=== PATIENT | female | born 1980 | race Caucasian/White ===

== ENCOUNTER 2018-04-21 05:18 | Inpatient (IN) | payer OTHER ==
[2018-04-21] MEDS ORDERED: Albuterol/Ipratropium 3.0-0.5 MG/3 ML Neb Soln NEB ONE (06:10)
[2018-04-21] MEDS ORDERED: Celecoxib 200 MG Cap PO ONE (06:11)
[2018-04-21] MEDS ORDERED: Gabapentin 300 MG Cap PO ONE (06:11)
[2018-04-21] MEDS ORDERED: Scopolamine 1.5 MG Transdermal Patch TOP ONE (06:11)
[2018-04-21] MEDS ORDERED: Acetaminophen 500 MG Tab PO ONE (06:11)
[2018-04-21] MEDS ORDERED: Dextrose 5%-Lactated Ringers 1,000 ML IV SCH (06:15)
[2018-04-21] MEDS ORDERED: cefOXitin 2 GM in Sodium Chloride 0.9% 100 ML IV ONE (07:00)
[2018-04-21] MEDS ORDERED: Propofol 200 MG/20 ML SDV ONE (07:13)
[2018-04-21] MEDS ORDERED: Glycopyrrolate 0.2 MG/ML 5 ML MDV ONE (07:13)
[2018-04-21] MEDS ORDERED: Neostigmine Methylsulfate 1 MG/ML 5 ML Syringe ONE (07:13)
[2018-04-21] MEDS ORDERED: Dexamethasone 4 MG/ML SDV ONE (07:13)
[2018-04-21] MEDS ORDERED: Succinylcholine 200 MG/10 ML MDV ONE (07:13)
[2018-04-21] MEDS ORDERED: Rocuronium 50 MG/5 ML Vial ONE (07:13)
[2018-04-21] MEDS ORDERED: Ondansetron 4 MG/2 ML SDV ONE (07:13)
[2018-04-21] MEDS ORDERED: Ketamine 50 MG in Sodium Chloride 0.9% 49.5 ML IV SCH (07:30)
[2018-04-21] MEDS ORDERED: Ketamine 500 MG/5 ML MDV IV SCH (07:30)
[2018-04-21] MEDS ORDERED: Ropivacaine 60 ML, Dexamethasone 8 MG, EPINEPHrine 0.4 MG, Sodium Chloride 0.9% 17.6 ML NERVRT SCH ×4 (07:30)
[2018-04-21] MEDS ORDERED: cefOXitin 2 GM in Sodium Chloride 0.9% 50 ML IV ONE (07:45)
[2018-04-21] MEDS ORDERED: Lidocaine 2% 100 MG/5 ML Syringe IVPUSH SCH (08:00)
[2018-04-21] MEDS: cefOXitin 2 GM Vial ONE ×2 (08:41→09:25)
[2018-04-21] MEDS ORDERED: Insulin Regular, Human 100 Units/ML 3 ML Vial IVPUSH ONE (09:44)
[2018-04-21] MEDS ORDERED: fentaNYL 100 MCG/2 ML SDV IVPUSH ONE ×2 (10:00→10:06)
[2018-04-21] MEDS ORDERED: hydrOXYzine HCl 100 MG/2 ML SDV IM ONE (10:00)
[2018-04-21] MEDS ORDERED: Insulin Lispro 100 Unit/ML 3 ML KwikPen SUBCUT ONE (10:15)
[2018-04-21] MEDS: Lidocaine 0.4%/D5W 2 GM/500 ML BAG IV SCH (10:46)
[2018-04-21] MEDS ORDERED: Insulin Lispro 100 Unit/ML 3 ML KwikPen SUBCUT PRN (11:35)
[2018-04-21] MEDS ORDERED: 50% Dextrose in Water 50 ML Syringe IVPUSH PRN (11:35)
[2018-04-21] MEDS ORDERED: HYDROmorphone 0.5 MG/0.5 ML Syringe IVPUSH PRN (11:35)
[2018-04-21] MEDS ORDERED: Metoclopramide 10 MG/2 ML SDV IVPUSH PRN (11:35)
[2018-04-21] MEDS ORDERED: diphenhydrAMINE 50 MG/ML SDV IVPUSH PRN (11:35)
[2018-04-21] MEDS ORDERED: Glucagon,Human Recombinant 1 MG Vial IM PRN (11:35)
[2018-04-21] MEDS ORDERED: hydrOXYzine HCl 100 MG/2 ML SDV IM PRN (11:35)
[2018-04-21] MEDS ORDERED: Labetalol 20 MG/4 ML Syringe IVPUSH PRN (11:35)
[2018-04-21] MEDS ORDERED: Albuterol/Ipratropium 3.0-0.5 MG/3 ML Neb Soln INH PRN (11:35)
[2018-04-21] MEDS: Pantoprazole 40 MG Vial IVPUSH SCH (11:58)
[2018-04-21] MEDS: Acetaminophen Soln 650 MG/20.3 ML UD Cup PO SCH ×2 (11:58→17:21)
[2018-04-21] MEDS: Dextrose 5%-Lactated Ringers 1,000 ML IV SCH ×2 (12:52→22:59)
[2018-04-21] MEDS ORDERED: Lactated Ringers 1,000 ML ONE (13:26)
[2018-04-21] MEDS: Gabapentin 250 MG/5 ML Solution ML 470 ML Bottle PO SCH ×2 (13:39→21:08)
[2018-04-21] MEDS: cefOXitin 2 GM in Sodium Chloride 0.9% 50 ML IV SCH ×2 (13:39→19:34)
[2018-04-21] MEDS: Ondansetron 4 MG/2 ML SDV IVPUSH PRN ×2 (14:20→19:33)
[2018-04-21] MEDS: Albuterol/Ipratropium 3.0-0.5 MG/3 ML Neb Soln INH SCH ×2 (15:09→21:09)
[2018-04-21] MEDS ORDERED: MVI, Adult with Vitamin K 10 ML, Thiamine 200 MG, Chromium/Copper/Mang/Selen/Zn 1 ML in... IV SCH ×4 (16:00)
[2018-04-21] MEDS ORDERED: MVI, Adult with Vitamin K 10 ML, Thiamine 100 MG, Chromium/Copper/Mang/Selen/Zn 1 ML in... IV SCH ×4 (16:00)
[2018-04-21] MEDS: Heparin Sodium 5,000 Units/ML Vial SUBCUT SCH (16:39)
[2018-04-22] MEDS: Acetaminophen Soln 650 MG/20.3 ML UD Cup PO SCH ×5 (00:36→23:19)
[2018-04-22] MEDS ORDERED: Iohexol 647 MG/ML 50 ML SDV PO STA (03:05)
[2018-04-22] MEDS: cefOXitin 2 GM in Sodium Chloride 0.9% 50 ML IV SCH ×2 (03:20→08:15)
[2018-04-22] MEDS: Heparin Sodium 5,000 Units/ML Vial SUBCUT SCH ×2 (03:20→15:53)
[2018-04-22] MEDS: Ondansetron 4 MG/2 ML SDV IVPUSH PRN (03:33)
[2018-04-22] MEDS: Dextrose 5%-Lactated Ringers 1,000 ML IV SCH (03:40)
--- NOTE | 2018-04-22 04:40 | CRLCR ---
INDICATION: Ozzy-en-Y TECHNIQUE: Abdomen modified upper GI COMPARISON: None FINDINGS: Oral contrast identified within the gastric pouch and transiting into jejunum and proximal ileum with no evidence of leakage. Physical drain identified in the left upper quadrant. IMPRESSION: Oral contrast transiting through the gastric pouch into the distal jejunum and proximal ileum without evidence for leakage. Dictated by Niles Landaverde MD @ 04/22/2018 4:38:54 AM Dictated by: Niles Landaverde MD @ 04/22/2018 04:39:01 (Electronically Signed)
[2018-04-22] MEDS: Albuterol/Ipratropium 3.0-0.5 MG/3 ML Neb Soln INH SCH ×4 (07:29→21:45)
[2018-04-22] MEDS: Lidocaine 0.4%/D5W 2 GM/500 ML BAG IV SCH (08:12)
[2018-04-22] MEDS: Gabapentin 250 MG/5 ML Solution ML 470 ML Bottle PO SCH ×3 (08:13→21:46)
[2018-04-22] MEDS: Celecoxib 200 MG Cap PO SCH (08:14)
[2018-04-22] MEDS ORDERED: valACYclovir 1,000 MG Tab PO PRN (09:18)
[2018-04-22] MEDS ORDERED: ALPRAZolam 0.5 MG Tab PO PRN (09:20)
[2018-04-22] MEDS: SCOPOLAMINE PATCH CHECK TOP SCH (09:24)
[2018-04-22] MEDS: HYDROmorphone 1 MG/ML Syringe IV PRN ×2 (09:27→15:46)
[2018-04-22] MEDS ORDERED: Dextrose 5%-Lactated Ringers 1,000 ML IV SCH (09:30)
[2018-04-22] MEDS: DULoxetine 30 MG Cap PO SCH (10:10)
[2018-04-22] MEDS: Escitalopram 20 MG Tab PO SCH (10:10)
[2018-04-22] MEDS: metFORMIN 500 MG Tab PO SCH ×2 (10:13→16:52)
[2018-04-22] MEDS: Pantoprazole 40 MG Vial IVPUSH SCH (12:18)
[2018-04-22] MEDS ORDERED: MVI, Adult with Vitamin K 10 ML, Thiamine 100 MG, Chromium/Copper/Mang/Selen/Zn 1 ML in... IV SCH ×4 (16:00)
[2018-04-22] MEDS ORDERED: HYDROmorphone 2 MG Tab PO PRN (20:38)
[2018-04-23] MEDS: Heparin Sodium 5,000 Units/ML Vial SUBCUT SCH ×2 (03:39→16:23)
[2018-04-23] MEDS: Acetaminophen Soln 650 MG/20.3 ML UD Cup PO SCH ×3 (05:53→17:43)
[2018-04-23] MEDS: Albuterol/Ipratropium 3.0-0.5 MG/3 ML Neb Soln INH SCH ×4 (07:12→20:07)
--- NOTE | 2018-04-23 07:48 | PN ---
DATE OF SERVICE: 04/22/2018 The patient has been afebrile with stable vital signs. Urine output has been satisfactory. Pressures are running in the mid 100s, and we will restart her metformin today. Otherwise, back down on the IV rate, go to a step 2 diet, and continue present pain management. Ricki Doss MD /[id number]
[2018-04-23] MEDS: metFORMIN 500 MG Tab PO SCH ×2 (08:04→16:23)
[2018-04-23] MEDS: Celecoxib 200 MG Cap PO SCH (08:04)
[2018-04-23] MEDS: DULoxetine 30 MG Cap PO SCH (08:04)
[2018-04-23] MEDS: SCOPOLAMINE PATCH CHECK TOP SCH (08:04)
[2018-04-23] MEDS: Escitalopram 20 MG Tab PO SCH (08:05)
[2018-04-23] MEDS: Gabapentin 250 MG/5 ML Solution ML 470 ML Bottle PO SCH ×3 (08:06→20:03)
[2018-04-23] MEDS ORDERED: Magnesium Hydroxide 400 MG/5 ML Susp 30 ML Cup PO ONE (08:30)
[2018-04-23] MEDS ORDERED: Cyanocobalamin (Vitamin B12) 1,000 MCG/ML SDV IM ONE (09:00)
[2018-04-23] MEDS ORDERED: Bisacodyl 5 MG Tab PO ONE (09:30)
--- NOTE | 2018-04-23 16:41 | PN ---
DATE OF SERVICE: 04/23/2018 SUBJECTIVE: Deepali is postoperative day #2. She had a temperature max of 100.2. She has been up ambulating, passing flatus, but has not had a bowel movement yet. Oral intake 2340. Urine output is 2100. Tolerating a step-2 with no cereal well. REVIEW OF SYSTEMS: Remainder of review of systems negative for any pertinent positives and negatives. OBJECTIVE: GENERAL: Deepali is a pleasant 37-year-old female, in no acute distress. VITAL SIGNS: TPR is 97.5, 91, 18, and blood pressure 117/78. HEENT: Negative. NECK: Supple. HEART: Regular rate and rhythm. LUNGS: Clear. ABDOMEN: Dressings dry and intact. Abdominal binder is on. LYNNE drain intact and has put out 85 mL of a light pink serosanguineous drainage. EXTREMITIES: Without peripheral edema. ASSESSMENT: Laparoscopic Ozzy-en-Y gastric bypass surgery, 04/21/2018. Surgeon, Ricki Doss MD. PLAN: 1. Milk of magnesia 30 mL now, followed by Dulcolax tabs. 2. One hour after milk of magnesia, work on good oral intake. 3. We will evaluate p.r.n. or in a.m. Alvina Fernandez PA-C /[id number]
[2018-04-24] MEDS: Acetaminophen Soln 650 MG/20.3 ML UD Cup PO SCH ×2 (01:01→05:00)
[2018-04-24] MEDS: Heparin Sodium 5,000 Units/ML Vial SUBCUT SCH (04:58)
[2018-04-24] MEDS: Albuterol/Ipratropium 3.0-0.5 MG/3 ML Neb Soln INH SCH (07:20)
[2018-04-24] MEDS: Celecoxib 200 MG Cap PO SCH (07:56)
[2018-04-24] MEDS: metFORMIN 500 MG Tab PO SCH (07:56)
[2018-04-24] MEDS: DULoxetine 30 MG Cap PO SCH (08:00)
[2018-04-24] MEDS: Escitalopram 20 MG Tab PO SCH (08:00)
[2018-04-24] MEDS: Gabapentin 250 MG/5 ML Solution ML 470 ML Bottle PO SCH (08:00)
--- NOTE | 2018-04-25 09:47 | DISCH ---
ADMISSION DIAGNOSES: 1. Morbid obesity, BMI 47.8. 2. Polycystic ovary disease. 3. Asthma. 4. Major depression disorder. DISCHARGE DIAGNOSES: Laparoscopic Ozzy-en-Y gastric bypass surgery and Ye-Cut needle liver biopsy. Date of surgery 04/21/2018. Surgeon, Ricki Doss MD. HISTORY: Deepali Villatoro is a 37-year-old female with longstanding history of morbid obesity and increasing comorbidities. After preoperative evaluation and discussion of possible risks and possible complications, she wished to proceed with surgical procedure. HOSPITAL COURSE: Deepali had her surgery on 04/21/2018. She had no operative complications. On postoperative day #1, her IV was decreased to 100 mL per hour. She was started on step 2 gastric bypass diet without cereal, and she was started on her home medications. On postoperative day 2, she was given bowel stimulation, B12 1000 mcg IM injection and received dietary instruction. On postoperative day #3, she was able to be discharged to home without any complications. PHYSICAL EXAMINATION: GENERAL: Deepali Villatoro is a 37-year-old female alert and orientated. VITAL SIGNS: Height 5 feet 2.5 inches. Weight is 265 pounds. BMI is 47.8. TPR 97.6, 93, 16, blood pressure 143/80. HEENT: Negative. NECK: Supple. HEART: Regular rate and rhythm. LUNGS: Clear. ABDOMEN: Sutures intact. LYNNE drain will be pulled prior to discharge. Abdominal binder on. EXTREMITIES: Without peripheral edema. DISPOSITION: Discharged to home. CONDITION: Stable and improving. FOLLOWUP APPOINTMENT: Alvina Fernandez PA-C, on 05/06/2018 at 10:00 a.m. Appointment at [place], [place]. HOME MEDICATIONS: Tylenol 650 mg oral q.6 hours, Celebrex 200 mg oral daily for 14 days, alprazolam 0.5 mg 3 times a day p.r.n. anxiety, albuterol ProAir inhaler 8.5 g inhalation every 4 hours p.r.n. shortness of breath, clindamycin Cleocin-T gel topical twice daily to affected area, Lotrisone cream twice daily to affected areas, Cymbalta 30 mg oral daily, Lexapro 20 mg oral daily, triamcinolone Kenalog cream topical twice daily, metformin 1000 mg oral twice daily with meals, valacyclovir, Valtrex 1000 mg oral daily p.r.n. cold sores. She is to discontinue taking her vitamins and supplements to after first postoperative appointment. DIET: Step 2 gastric bypass diet with no cereal for 2 weeks until 05/06/2018. Drink 8 to 10 glasses of water a day. ACTIVITY: Walk at least 6 times daily inside your home. Driving; do not drive for one week. Shower/bathing, may shower. DISCHARGE INSTRUCTIONS: Notify provider if any fever, increased pain, nausea, or vomiting. Keep site clean and dry. Wear abdominal binder for 2 weeks and then as tolerated. SPECIAL INSTRUCTION: Use incentive spirometer 10 times every hour while awake for one week.
--- NOTE | 2018-04-28 15:17 | OR ---
DATE OF PROCEDURE: 04/21/2018 PREOPERATIVE DIAGNOSIS: Morbid obesity. POSTOPERATIVE DIAGNOSES: 1. Morbid obesity. 2. Marked hepatomegaly. 3. Paraesophageal diaphragmatic hernia. OPERATIVE PROCEDURE: 1. Laparoscopic Ozzy-en-Y gastric bypass with long limb gastroenterostomy (78908). 2. Ye-Cut needle liver biopsy (43952). 3. Repair of paraesophageal diaphragmatic hernia (14932). ANESTHESIA: General. SIGNAL MECHANIC: Alvina uLgo and WERO Hamilton. INDICATION FOR PROCEDURE: This is a 37-year-old female presenting with longstanding morbid obesity and increasingly significant comorbidities. After preoperative evaluation and discussion, she wished to proceed with a gastric bypass. Potential risks of the procedure including bleeding, infection, leaks from various GI tract closures, problems with bowel obstruction overtime, as well as possibility of cardiopulmonary, septic, or hemorrhagic complications leading to were all discussed, and the patient wishes to proceed. DESCRIPTION OF PROCEDURE: The patient was taken to the operating room. After general endotracheal anesthesia was induced, she was placed in a lithotomy position, and the abdomen was prepped and draped. At 15 cm inferior and 5 cm left of xiphoid process, a transverse incision was made and peritoneal cavity entered under direct vision with an Optiview trocar, inflated to 15 mmHg pressure with CO2. Following this, bilateral subcostal transverse abdominis plane blocks were placed, and 5 additional trocars were placed across the upper and mid abdomen. Initial examination showed marked hepatomegaly with liver volume being roughly 2 to 3 times normal and liver grossly fatty infiltrated. Ye-Cut needle biopsies were obtained from left lobe of the liver. Minimal bleeding from the biopsy sites was controlled with electrocautery. The omentum was then divided in the midline up to the level of the transverse colon. This allowed identification of small bowel at the ligament of Treitz. Small bowel was then traced out to 150 cm distal to that point, where it was divided transversely with a JERRY stapler. Small bowel was then traced out an additional 200 cm, where the [id number]-[id number] enteroenterostomy was accomplished with internal firing of the Endo-JERRY 60 mm stapler. Common opening was then closed transversely with the same stapler and angles anastomosed and mesenteric defect was approximated with some 0 Ethibond stitch, along with fibrin sealant. The divided end of the Ozzy limb was then from the mesentery for a few centimeters, which allowed an antecolic position of the Ozzy limb up to the level of the gastroesophageal junction without tension. The liver was then retracted anteriorly. The patient was noted to have a moderate-sized paraesophageal diaphragmatic hernia. This included a prolapse of some perigastric fat and fundus of the stomach in the plane anterior to the course of the esophagus. This area was reduced and the peritoneum overlying it incised and reflected downward. Anterior repair of the diaphragmatic hernia was accomplished with series of 0 Ethibond sutures reinforced with PTFE pledgets. The gastrointestinal balloon catheter was then inflated 15 mL and pulled up snugly against the EG junction. Gastric wall over the apex balloon was then marked with electrocautery. Balloon catheter deflated and pulled up from the esophagus. The lesser omental tissue adjacent to the gastric cardia was then incised, allowing dissection behind the stomach at that level. Pouch formation was initiated with a transverse firing of the JERRY stapler at the level of the cauterized alana in the gastric cardia and then the pouch was completed with additional firings of JERRY carlo up through the angle of His. Upon completion of the pouch, both staple lines were noted to be intact. The anvil of a 25 mm EEA stapler was attached to Welch sump type tube. The latter was brought down through the mouth, taken out through a small opening in the gastric pouch, allowing the anvil likewise to be pulled down to within the gastric pouch. The divided end of the Ozzy limb was then opened and the main body of the EEA stapler was passed up several centimeters into the Ozzy limb and small bowel, brought up the anvil and united with it, thus creating the gastrojejunostomy. Upon removal of stapler, double donuts of mucosa were noted within it. The small bowel was closed off with a vascular staple line. Gastrojejunostomy was reinforced with some 3-0 Vicryl seromuscular stitch, along with fibrin sealant. Leak test was accomplished with injection of 120 mL of air in the gastric pouch while submerged with a cefoxitin-containing saline solution. No leaks were identified. Erik-Pradhan drains were then placed adjacent to the gastrojejunostomy and taken out through subcostal trocar sites. With no further problems noted, trocars were removed and the peritoneal cavity deflated. Incisions were closed with some 4-0 Vicryl skin stitch, which was also used to reapproximate this drain. The patient was taken to the recovery room in satisfactory condition. There were no evident of complications. Physician fish hatchery assistant, Alvina Fernandez, played an essential role in assisting in this case, helping to position the patient, retract structures as needed, as well as suturing and cutting sutures when indicated. Her presence improved the patient's safety and decreased the operative time. Ricki Doss MD /[id number]
== END 2018-04-24 10:30 | disposition home or self-care (01) | DRG 620 ==
LOC: JP.SDS 05:18 → JP.SDSSCHI 05:18 → JP.MS 09:25 → EDSTATUS 12:15
PROVIDERS: ADMIT Surgery; ATTEND Surgery
PROC: 0D164ZA Bypass Stomach to Jejunum, Percutaneous Endoscopic Approach (ICD-10-PCS; principal; 2018-04-21)
PROC: 0FB24ZX Excision of Left Lobe Liver, Percutaneous Endoscopic Approach, Diagnostic (ICD-10-PCS; 2018-04-21)
PROC: 0BQT4ZZ Repair Diaphragm, Percutaneous Endoscopic Approach (ICD-10-PCS; 2018-04-21)
DX: E66.01 Morbid (severe) obesity due to excess calories (principal); F33.8 Other recurrent depressive disorders; K44.9 Diaphragmatic hernia without obstruction or gangrene; R16.0 Hepatomegaly, not elsewhere classified; K76.0 Fatty (change of) liver, not elsewhere classified; Z68.42 Body mass index [BMI] 45.0-49.9, adult; A63.0 Anogenital (venereal) warts; J45.30 Mild persistent asthma, uncomplicated; E28.2 Polycystic ovarian syndrome; L70.9 Acne, unspecified; Z88.1 Allergy status to other antibiotic agents; Z88.8 Allergy status to other drugs, medicaments and biological substances
CPT/HCPCS: 36415; 74240; 81025; 82962; 86850; 86900; 86901; 88307; 88313; 94640; A9270-GY; C9113; J0171; J0330; J0694; J1100; J1170; J1644; J1815; J2001; J2405; J2704; J2710; J2795; J3010; J3410; J3411; J3420; J3490; J7030; J7042; J7050; J7120; J7620-GY; Q9967

== ENCOUNTER 2022-02-22 08:08 | Inpatient (IN) | payer BC, OTHER ==
[2022-02-22] MEDS ORDERED: Neostigmine Methylsulfate 1 MG/ML 5 ML Syringe ONE (08:24)
[2022-02-22] MEDS ORDERED: Succinylcholine 200 MG/10 ML MDV ONE (08:24)
[2022-02-22] MEDS ORDERED: Rocuronium 50 MG/5 ML Vial ONE (08:24)
[2022-02-22] MEDS ORDERED: Propofol 200 MG/20 ML SDV ONE (08:24)
[2022-02-22] MEDS ORDERED: Glycopyrrolate 0.2 MG/ML 5 ML MDV ONE (08:24)
[2022-02-22] MEDS ORDERED: Ondansetron 4 MG/2 ML SDV ONE (08:24)
[2022-02-22] MEDS ORDERED: Dexamethasone 4 MG/ML SDV ONE (08:24)
[2022-02-22] MEDS ORDERED: Scopolamine 1.5 MG Transdermal Patch TOP SCH (09:00)
[2022-02-22] MEDS ORDERED: Dextrose 5%-Lactated Ringers 1,000 ML IV SCH (09:00)
[2022-02-22] MEDS ORDERED: Albuterol/Ipratropium 3.0-0.5 MG/3 ML Neb Soln NEB ONE (09:15)
[2022-02-22] MEDS ORDERED: Bupivacaine 0.5% 30 ML SDV ONE (09:20)
[2022-02-22] MEDS ORDERED: Lidocaine 1% with EPINEPHrine 1:100,000 50 ML MDV ONE (09:20)
[2022-02-22] MEDS ORDERED: Meropenem 500 MG SDV ONE (09:20)
[2022-02-22] MEDS ORDERED: Naloxone 0.4 MG/ML SDV IVPUSH PRN (09:26)
[2022-02-22] MEDS ORDERED: diphenhydrAMINE 25 MG Cap PO PRN (09:26)
[2022-02-22] MEDS ORDERED: Ondansetron 4 MG/2 ML SDV IVPUSH PRN ×2 (09:26→14:15)
[2022-02-22] MEDS ORDERED: diphenhydrAMINE 50 MG/ML SDV IVPUSH PRN ×2 (09:26→14:15)
[2022-02-22] MEDS ORDERED: Naloxone 0.4 MG/ML SDV IV PRN (10:00)
[2022-02-22] MEDS ORDERED: cefOXitin 2 GM in Sodium Chloride 0.9% 50 ML IV ONE (10:00)
[2022-02-22] MEDS ORDERED: Ketamine 500 MG/5 ML MDV IV SCH (10:15)
[2022-02-22] MEDS ORDERED: Ropivacaine 36 ML, dexAMETHasone 8 MG, EPINEPHrine 0.4 MG, Sodium Chloride 0.9% 41.6 ML NERVRT SCH ×4 (10:15)
[2022-02-22] MEDS ORDERED: Ketamine 15 MG in Sodium Chloride 0.9% 19.85 ML IV SCH (10:15)
[2022-02-22] MEDS: HYDROmorphone/Normal Saline 6 MG/30 ML PCA Vial IV PRN (10:57)
[2022-02-22] MEDS ORDERED: Meropenem 500 MG SDV IRR ONE (11:28)
[2022-02-22] MEDS ORDERED: Linezolid 600 MG/300 ML Premix Bag IRR ONE (11:29)
[2022-02-22] MEDS ORDERED: Lactated Ringers 1,000 ML ONE (11:40)
[2022-02-22] MEDS ORDERED: hydrOXYzine HCL 100 MG/2 ML SDV IM ONE (12:41)
[2022-02-22] MEDS ORDERED: fentaNYL 50 MCG/ML SDV IVPUSH ONE (12:41)
[2022-02-22] MEDS ORDERED: Acetaminophen 500 MG Tab PO SCH (14:00)
[2022-02-22] MEDS ORDERED: Acetaminophen 500 MG Tab PO PRN (14:15)
[2022-02-22] MEDS ORDERED: Albuterol/Ipratropium 3.0-0.5 MG/3 ML Neb Soln INH PRN (14:15)
[2022-02-22] MEDS ORDERED: Metoclopramide 10 MG/2 ML SDV IVPUSH PRN (14:15)
[2022-02-22] MEDS ORDERED: Labetalol 20 MG/4 ML Syringe IVPUSH PRN (14:15)
[2022-02-22] MEDS: Albuterol/Ipratropium 3.0-0.5 MG/3 ML Neb Soln INH SCH ×2 (14:39→20:05)
[2022-02-22] MEDS: Dextrose 5%-Lactated Ringers 1,000 ML IV SCH (14:57)
[2022-02-22] MEDS: Sodium Ferric Gluconate Cmplex 250 MG in Sodium Chloride 0.9% 100 ML IV SCH (14:59)
[2022-02-22] MEDS: Cyclobenzaprine 10 MG Tab PO PRN (15:55)
[2022-02-22] MEDS ORDERED: MVI, Adult with Vitamin K 10 ML, Thiamine 200 MG, Zinc/Copper/Manganese/Selenium 1 ML i... IV SCH ×8 (16:00→22:00)
[2022-02-22] MEDS ORDERED: Pantoprazole 40 MG Vial IVPUSH SCH (16:00)
[2022-02-22] MEDS: metFORMIN 500 MG Tab PO SCH (17:49)
[2022-02-22] MEDS: hydrOXYzine HCL 100 MG/2 ML SDV IM PRN (19:02)
[2022-02-22] MEDS: cefOXitin 2 GM in Sodium Chloride 0.9% 50 ML IV SCH ×2 (19:05→23:14)
[2022-02-22] MEDS: busPIRone 10 MG Tab PO SCH (20:01)
[2022-02-22] MEDS: Heparin Sodium 5,000 Units/ML Vial SUBCUT SCH (20:01)
[2022-02-22] MEDS: Acetaminophen 500 MG Tab PO SCH (21:23)
[2022-02-23] MEDS: hydrOXYzine HCL 100 MG/2 ML SDV IM PRN ×2 (02:41→08:49)
[2022-02-23] MEDS ORDERED: Iopamidol 612 MG/ML 50 ML SDV PO STA (02:57)
[2022-02-23] MEDS: Dextrose 5%-Lactated Ringers 1,000 ML IV SCH ×2 (04:29→12:09)
[2022-02-23 05:03] LABS: ESTIMATED GFR 82 mL/min (>60)
[2022-02-23] MEDS: Acetaminophen 500 MG Tab PO SCH ×3 (05:27→22:01)
[2022-02-23] MEDS: cefOXitin 2 GM in Sodium Chloride 0.9% 50 ML IV SCH ×4 (05:27→22:02)
[2022-02-23] MEDS: Albuterol/Ipratropium 3.0-0.5 MG/3 ML Neb Soln INH SCH ×4 (07:18→20:50)
[2022-02-23] MEDS ORDERED: Ondansetron 4 MG Tab.DIS PO PRN (08:15)
[2022-02-23] MEDS: HYDROmorphone/Normal Saline 6 MG/30 ML PCA Vial IV PRN (08:33)
[2022-02-23] MEDS: busPIRone 10 MG Tab PO SCH ×3 (08:35→20:51)
[2022-02-23] MEDS: DULoxetine 30 MG Cap PO SCH (08:35)
[2022-02-23] MEDS: Celecoxib 200 MG Cap PO SCH ×2 (08:35→20:51)
[2022-02-23] MEDS: Heparin Sodium 5,000 Units/ML Vial SUBCUT SCH ×2 (08:35→19:28)
[2022-02-23] MEDS: metFORMIN 500 MG Tab PO SCH ×2 (08:35→16:42)
[2022-02-23] MEDS: Docusate Sodium 100 MG Cap PO SCH ×2 (08:39→20:51)
[2022-02-23] MEDS: Bisacodyl 5 MG Tab PO SCH ×2 (08:39→20:51)
[2022-02-23] MEDS: SCOPOLAMINE PATCH CHECK TOP SCH (08:39)
[2022-02-23] MEDS: Cyclobenzaprine 10 MG Tab PO PRN (11:56)
[2022-02-23] MEDS: valACYclovir 1,000 MG Tab PO SCH ×2 (14:04→22:02)
[2022-02-23] MEDS: Sodium Ferric Gluconate Cmplex 250 MG in Sodium Chloride 0.9% 100 ML IV SCH (15:51)
[2022-02-23] MEDS: Pantoprazole 40 MG Tab.CR PO SCH (16:42)
[2022-02-23] MEDS ORDERED: MVI, Adult with Vitamin K 10 ML, Thiamine 200 MG, Zinc/Copper/Manganese/Selenium 1 ML i... IV SCH ×4 (20:00)
[2022-02-24] MEDS: Acetaminophen 500 MG Tab PO SCH ×3 (05:22→21:02)
[2022-02-24] MEDS: Albuterol/Ipratropium 3.0-0.5 MG/3 ML Neb Soln INH SCH ×4 (07:06→21:00)
[2022-02-24] MEDS: Dextrose 5%-Lactated Ringers 1,000 ML IV SCH ×2 (07:35→17:28)
[2022-02-24] MEDS: Heparin Sodium 5,000 Units/ML Vial SUBCUT SCH ×2 (08:28→19:32)
[2022-02-24] MEDS: Docusate Sodium 100 MG Cap PO SCH ×3 (08:29→21:01)
[2022-02-24] MEDS: Bisacodyl 5 MG Tab PO SCH ×3 (08:29→21:02)
[2022-02-24] MEDS: metFORMIN 500 MG Tab PO SCH ×2 (08:30→17:07)
[2022-02-24] MEDS: SCOPOLAMINE PATCH CHECK TOP SCH (08:30)
[2022-02-24] MEDS: Celecoxib 200 MG Cap PO SCH ×2 (08:30→21:01)
[2022-02-24] MEDS: busPIRone 10 MG Tab PO SCH ×3 (08:30→21:01)
[2022-02-24] MEDS: DULoxetine 30 MG Cap PO SCH (08:30)
[2022-02-24] MEDS ORDERED: Cyanocobalamin (Vitamin B12) 1,000 MCG/ML SDV IM ONE (09:00)
[2022-02-24] MEDS: HYDROmorphone 2 MG Tab PO PRN ×3 (11:42→19:40)
[2022-02-24] MEDS: Pantoprazole 40 MG Tab.CR PO SCH (17:02)
[2022-02-25] MEDS: HYDROmorphone 2 MG Tab PO PRN ×2 (01:16→05:44)
[2022-02-25] MEDS: Dextrose 5%-Lactated Ringers 1,000 ML IV SCH (03:25)
[2022-02-25] MEDS: Acetaminophen 500 MG Tab PO SCH (05:41)
[2022-02-25] MEDS: Albuterol/Ipratropium 3.0-0.5 MG/3 ML Neb Soln INH SCH (06:56)
[2022-02-25] MEDS ORDERED: Magnesium Hydroxide 400 MG/5 ML Susp 30 ML Cup PO ONE (07:47)
[2022-02-25] MEDS: Cyclobenzaprine 10 MG Tab PO PRN (08:08)
[2022-02-25] MEDS: busPIRone 10 MG Tab PO SCH (08:08)
[2022-02-25] MEDS: Celecoxib 200 MG Cap PO SCH (08:09)
[2022-02-25] MEDS: Docusate Sodium 100 MG Cap PO SCH (08:09)
[2022-02-25] MEDS: Bisacodyl 5 MG Tab PO SCH (08:09)
[2022-02-25] MEDS: metFORMIN 500 MG Tab PO SCH (08:10)
[2022-02-25] MEDS: Heparin Sodium 5,000 Units/ML Vial SUBCUT SCH (08:10)
[2022-02-25] MEDS: DULoxetine 30 MG Cap PO SCH (08:10)
== END 2022-02-25 08:30 | disposition home or self-care (01) | DRG 221 ==
LOC: JP.SDSSCHI 08:08 → JP.MS 12:30
PROVIDERS: ADMIT Surgery; ATTEND Surgery
PROC: 0DS80ZZ Reposition Small Intestine, Open Approach (ICD-10-PCS; principal; 2022-02-22)
PROC: 0DB80ZZ Excision of Small Intestine, Open Approach (ICD-10-PCS; 2022-02-22)
PROC: 0DBW0ZZ Excision of Peritoneum, Open Approach (ICD-10-PCS; 2022-02-22)
PROC: 0UB00ZZ Excision of Right Ovary, Open Approach (ICD-10-PCS; 2022-02-22)
PROC: 0DBN0ZZ Excision of Sigmoid Colon, Open Approach (ICD-10-PCS; 2022-02-22)
PROC: 0DBP0ZZ Excision of Rectum, Open Approach (ICD-10-PCS; 2022-02-22)
PROC: 0WQF0ZZ Repair Abdominal Wall, Open Approach (ICD-10-PCS; 2022-02-22)
PROC: 3E0M05Z Introduction of Adhesion Barrier into Peritoneal Cavity, Open Approach (ICD-10-PCS; 2022-02-22)
DX: K95.89 Other complications of other bariatric procedure (principal); K56.2 Volvulus; N83.201 Unspecified ovarian cyst, right side; K43.0 Incisional hernia with obstruction, without gangrene; F41.9 Anxiety disorder, unspecified; F32.A Depression, unspecified; E66.01 Morbid (severe) obesity due to excess calories; K91.2 Postsurgical malabsorption, not elsewhere classified; E53.8 Deficiency of other specified B group vitamins; E53.9 Vitamin B deficiency, unspecified; E55.9 Vitamin D deficiency, unspecified; E60 Dietary zinc deficiency; E50.9 Vitamin A deficiency, unspecified; Z79.899 Other long term (current) drug therapy; Z79.84 Long term (current) use of oral hypoglycemic drugs; Z68.28 Body mass index [BMI] 28.0-28.9, adult
CPT/HCPCS: 36415; 74240; 80053; 81025; 83735; 84100; 85025; 86304; 88302; 88305; 88307; 88341; 88342; 94640; A9270-GY; C9113; J0171; J0330; J0694; J1100; J1170; J1644; J2020; J2185; J2405; J2704; J2710; J2795; J2916; J3010; J3410; J3411; J3420; J3490; J7120; J7121; J7620; Q9967

== ENCOUNTER 2022-06-29 07:47 | Inpatient (IN) | payer BC ==
[2022-06-29] MEDS ORDERED: Neostigmine Methylsulfate 1 MG/ML 5 ML Syringe ONE (07:53)
[2022-06-29] MEDS ORDERED: Propofol 200 MG/20 ML SDV ONE (07:53)
[2022-06-29] MEDS ORDERED: Glycopyrrolate 0.2 MG/ML 5 ML MDV ONE (07:53)
[2022-06-29] MEDS ORDERED: Ondansetron 4 MG/2 ML SDV ONE (07:53)
[2022-06-29] MEDS ORDERED: Dexamethasone 4 MG/ML SDV ONE (07:53)
[2022-06-29] MEDS ORDERED: fentaNYL 250 MCG/5 ML SDV ONE (07:53)
[2022-06-29] MEDS ORDERED: Succinylcholine 200 MG/10 ML MDV ONE (07:53)
[2022-06-29] MEDS ORDERED: Scopolamine 1.5 MG Transdermal Patch TOP SCH (08:30)
[2022-06-29] MEDS ORDERED: Celecoxib 200 MG Cap PO ONE (08:30)
[2022-06-29] MEDS ORDERED: Dextrose 5%-Lactated Ringers 1,000 ML IV SCH (08:30)
[2022-06-29] MEDS ORDERED: Naloxone 0.4 MG/ML SDV IV PRN (09:00)
[2022-06-29] MEDS ORDERED: Albuterol/Ipratropium 3.0-0.5 MG/3 ML Neb Soln NEB ONE (09:00)
[2022-06-29] MEDS ORDERED: ceFAZolin 2 GM in Premix Bag 1 BAG IV ONE (09:00)
[2022-06-29] MEDS ORDERED: Lidocaine 1% with EPINEPHrine 1:100,000 50 ML MDV ONE (09:31)
[2022-06-29] MEDS ORDERED: Bupivacaine 0.5% 50 ML MDV ONE (09:31)
[2022-06-29] MEDS ORDERED: Ketamine 15 MG in Sodium Chloride 0.9% 19.85 ML IV SCH (09:45)
[2022-06-29] MEDS ORDERED: Ropivacaine 35 ML, dexAMETHasone 8 MG, EPINEPHrine 0.4 MG, Sodium Chloride 0.9% 42.6 ML NERVRT SCH ×4 (09:45)
[2022-06-29] MEDS ORDERED: Ketamine 500 MG/5 ML MDV IV SCH (09:45)
[2022-06-29] MEDS: HYDROmorphone/Normal Saline 6 MG/30 ML PCA Vial IV PRN ×2 (10:35→21:21)
[2022-06-29] MEDS ORDERED: Rocuronium 50 MG/5 ML Vial ONE (10:58)
[2022-06-29] MEDS: Meropenem 500 MG SDV ONE ×2 (11:18→12:00)
[2022-06-29] MEDS ORDERED: Linezolid 600 MG/300 ML Premix Bag IRR ONE (12:00)
[2022-06-29] MEDS ORDERED: fentaNYL 100 MCG/2 ML SDV ONE ×2 (12:08→12:30)
[2022-06-29] MEDS ORDERED: Lactated Ringers 1,000 ML ONE (12:15)
[2022-06-29] MEDS ORDERED: hydrOXYzine HCl 50 MG/ML SDV IM ONE (13:05)
[2022-06-29] MEDS ORDERED: ALPRAZolam 0.5 MG Tab PO PRN (14:35)
[2022-06-29] MEDS: Albuterol/Ipratropium 3.0-0.5 MG/3 ML Neb Soln INH SCH ×2 (14:36→20:38)
[2022-06-29] MEDS ORDERED: Albuterol/Ipratropium 3.0-0.5 MG/3 ML Neb Soln INH PRN (15:00)
[2022-06-29] MEDS ORDERED: Metoclopramide 10 MG/2 ML SDV IVPUSH PRN (15:00)
[2022-06-29] MEDS ORDERED: Pantoprazole 40 MG Vial IVPUSH SCH (15:00)
[2022-06-29] MEDS ORDERED: Labetalol 20 MG/4 ML Syringe IVPUSH PRN (15:00)
[2022-06-29] MEDS ORDERED: Acetaminophen 500 MG Tab PO PRN (15:00)
[2022-06-29] MEDS ORDERED: hydrOXYzine HCl 50 MG/ML SDV IM PRN (15:00)
[2022-06-29] MEDS ORDERED: Ondansetron 4 MG/2 ML SDV IVPUSH PRN (15:00)
[2022-06-29] MEDS ORDERED: diphenhydrAMINE 50 MG/ML SDV IVPUSH PRN (15:00)
[2022-06-29] MEDS: ceFAZolin 2 GM in Premix Bag 1 BAG IV SCH ×2 (15:57→23:07)
[2022-06-29] MEDS: Acetaminophen 500 MG Tab PO SCH ×2 (15:57→23:05)
[2022-06-29] MEDS: Sodium Ferric Gluconate Cmplex 250 MG in Sodium Chloride 0.9% 100 ML IV SCH (17:15)
[2022-06-29] MEDS: MVI, Adult with Vitamin K 10 ML, Thiamine 200 MG, Zinc/Copper/Manganese/Selenium 1 ML i... IV SCH ×4 (18:18)
[2022-06-29] MEDS: busPIRone 10 MG Tab PO SCH (20:38)
[2022-06-29] MEDS: valACYclovir 1,000 MG Tab PO SCH (20:38)
[2022-06-29] MEDS: Heparin Sodium 5,000 Units/ML Vial SUBCUT SCH (20:38)
[2022-06-30] MEDS: Dextrose 5%-Lactated Ringers 1,000 ML IV SCH ×2 (00:10→06:23)
[2022-06-30 04:38] LABS: BASOPHILS ABSOLUTE AUTO 0.04 K/uL (0.00-0.10); BASOPHILS PERCENT AUTO 0.3 % (0.1-1.3); EOSINOPHILS PERCENT AUTO 0.1 % (0.0-5.4); HEMATOCRIT 35.3 % (34.3-46.0); HEMOGLOBIN 11.4 g/dL (11.2-15.5); IMMATURE GRAN ABSOLUTE AUTO 0.05 K/uL (0.00-0.23); IMMATURE GRAN PERCENT AUTO 0.4 % (0.0-0.7); LYMPHOCYTES ABSOLUTE AUTO 0.71 K/uL (0.8-3.3); LYMPHOCYTES PERCENT AUTO 5.6 % (11.4-47.7); MEAN CORPUSCULAR HEMOGLOBIN 30.9 pg (31.6-35.5); MEAN CORPUSCULAR HGB CONC 32.3 g/dL (31.6-35.5); MEAN CORPUSCULAR VOLUME 95.7 fL (81.4-99.0); MONOCYTES ABSOLUTE AUTO 1.04 K/uL (0.20-0.90); MONOCYTES PERCENT AUTO 8.2 % (3.3-12.6); NEUTROPHILS PERCENT AUTO 85.4 % (40.0-78.1); PLATELET COUNT,PLT 156 K/uL (130-375); RED BLOOD CELL COUNT 3.69 M/uL (3.77-5.24); WHITE BLOOD CELL COUNT,WBC 12.8 K/uL (3.2-11.0)
[2022-06-30] MEDS ORDERED: Iopamidol 612 MG/ML 30 ML SDV PO ONE (04:45)
[2022-06-30 04:47] LABS: EOSINOPHILS ABSOLUTE AUTO 0.01 K/uL (0.00-0.40)
[2022-06-30 05:09] LABS: ALANINE AMINOTRANSFERASE,ALT 33 U/L (12-78); ALBUMIN 2.8 g/dL (3.4-5.0); ALKALINE PHOSPHATASE 62 U/L (46-116); ASPARTATE AMNIOTRANSFERASE,AST 28 U/L (15-37); BILIRUBIN TOTAL 0.4 mg/dL (0.2-1.0); BLOOD UREA NITROGEN,BUN 9 mg/dL (7-18); CARBON DIOXIDE,CO2 26 mmol/L (21-32); CHLORIDE,CL 103 mmol/L (100-108); CREATININE 0.6 mg/dL (0.6-1.0); ESTIMATED GFR 115 mL/min (>60); GLUCOSE RANDOM 201 mg/dL (74-106); MAGNESIUM 1.5 mg/dL (1.8-2.4); PHOSPHORUS 3.5 mg/dL (2.5-4.9); PRO B-TYPE NATRIUR PEPT,BNPPRO 83 pg/mL (5-125); PROTEIN TOTAL,TP 5.7 g/dL (6.4-8.2); SODIUM,NA 136 mmol/L (140-148)
[2022-06-30] MEDS: Albuterol/Ipratropium 3.0-0.5 MG/3 ML Neb Soln INH SCH ×4 (07:34→21:17)
[2022-06-30] MEDS: ceFAZolin 2 GM in Premix Bag 1 BAG IV SCH (08:00)
[2022-06-30] MEDS: Cyclobenzaprine 10 MG Tab PO PRN ×2 (08:01→23:26)
[2022-06-30] MEDS: Acetaminophen 500 MG Tab PO SCH ×3 (08:55→23:23)
[2022-06-30] MEDS: Heparin Sodium 5,000 Units/ML Vial SUBCUT SCH ×2 (08:55→21:09)
[2022-06-30] MEDS: Celecoxib 200 MG Cap PO SCH ×2 (08:56→21:10)
[2022-06-30] MEDS: busPIRone 10 MG Tab PO SCH ×3 (08:56→21:10)
[2022-06-30] MEDS: DULoxetine 30 MG Cap PO SCH (08:57)
[2022-06-30] MEDS: SCOPOLAMINE PATCH CHECK TOP SCH (08:57)
[2022-06-30] MEDS: valACYclovir 1,000 MG Tab PO SCH ×2 (08:58→21:11)
[2022-06-30] MEDS ORDERED: HYDROmorphone/Normal Saline 6 MG/30 ML PCA Vial IV PRN ×2 (09:50→09:55)
[2022-06-30] MEDS ORDERED: Dextrose 5%-Lactated Ringers 1,000 ML IV SCH (10:00)
[2022-06-30] MEDS: Bisacodyl 5 MG Tab PO SCH ×2 (10:52→21:10)
[2022-06-30] MEDS: metFORMIN 500 MG Tab PO SCH ×2 (10:53→21:10)
[2022-06-30] MEDS: Docusate Sodium 100 MG Cap PO SCH ×2 (10:53→21:10)
[2022-06-30] MEDS: Pantoprazole 40 MG Tab.CR PO SCH (16:04)
[2022-06-30] MEDS: Sodium Ferric Gluconate Cmplex 250 MG in Sodium Chloride 0.9% 100 ML IV SCH (16:05)
[2022-06-30] MEDS: MVI, Adult with Vitamin K 10 ML, Thiamine 200 MG, Zinc/Copper/Manganese/Selenium 1 ML i... IV SCH ×4 (17:12)
[2022-06-30] MEDS: oxyCODONE 5 MG Tab PO PRN (19:03)
[2022-07-01] MEDS: oxyCODONE 5 MG Tab PO PRN ×2 (02:38→08:23)
[2022-07-01] MEDS: Albuterol/Ipratropium 3.0-0.5 MG/3 ML Neb Soln INH SCH (06:57)
[2022-07-01] MEDS: Pantoprazole 40 MG Tab.CR PO SCH (08:23)
[2022-07-01] MEDS: Cyclobenzaprine 10 MG Tab PO PRN (08:23)
[2022-07-01] MEDS: busPIRone 10 MG Tab PO SCH (08:24)
[2022-07-01] MEDS: Acetaminophen 500 MG Tab PO SCH (08:24)
[2022-07-01] MEDS: Heparin Sodium 5,000 Units/ML Vial SUBCUT SCH (08:24)
[2022-07-01] MEDS: Bisacodyl 5 MG Tab PO SCH (08:24)
[2022-07-01] MEDS: Celecoxib 200 MG Cap PO SCH (08:24)
[2022-07-01] MEDS: Docusate Sodium 100 MG Cap PO SCH (08:25)
[2022-07-01] MEDS: metFORMIN 500 MG Tab PO SCH (08:25)
[2022-07-01] MEDS: valACYclovir 1,000 MG Tab PO SCH (08:25)
[2022-07-01] MEDS: SCOPOLAMINE PATCH CHECK TOP SCH (08:26)
[2022-07-01] MEDS: DULoxetine 30 MG Cap PO SCH (08:28)
[2022-07-01] MEDS ORDERED: Cyanocobalamin (Vitamin B12) 1,000 MCG/ML SDV IM ONE (09:00)
== END 2022-07-01 09:35 | disposition home or self-care (01) | DRG 221 ==
LOC: JP.SDSSCHI 07:47 → EDSTATUS 12:15 → JP.MS 12:30
PROVIDERS: ADMIT Surgery; ATTEND Surgery
PROC: 0DT80ZZ Resection of Small Intestine, Open Approach (ICD-10-PCS; principal; 2022-06-29)
PROC: 0DBW0ZZ Excision of Peritoneum, Open Approach (ICD-10-PCS; principal; 2022-06-29)
PROC: 0WUF0JZ Supplement Abdominal Wall with Synthetic Substitute, Open Approach (ICD-10-PCS; principal; 2022-06-29)
DX: K56.51 Intestinal adhesions [bands], with partial obstruction (principal); K42.0 Umbilical hernia with obstruction, without gangrene; F32.A Depression, unspecified; E28.2 Polycystic ovarian syndrome; J45.909 Unspecified asthma, uncomplicated; K43.0 Incisional hernia with obstruction, without gangrene; D32.9 Benign neoplasm of meninges, unspecified; E66.9 Obesity, unspecified; J45.30 Mild persistent asthma, uncomplicated; F41.1 Generalized anxiety disorder; D50.9 Iron deficiency anemia, unspecified; G43.909 Migraine, unspecified, not intractable, without status migrainosus; Z98.84 Bariatric surgery status; Z68.29 Body mass index [BMI] 29.0-29.9, adult; Z79.899 Other long term (current) drug therapy; Z98.890 Other specified postprocedural states
CPT/HCPCS: 36415; 74240; 74240-26; 80053; 81025; 83735; 83880; 84100; 85025; 94640; A9270-GY; C1713; C1781; C9113; J0131; J0330; J0690; J1100; J1170; J1644; J2020; J2185; J2405; J2704; J2710; J2916; J3010; J3410; J3411; J3420; J3490; J7120; J7121; J7620; Q9967

== ENCOUNTER 2024-12-14 16:21 | Inpatient (IN) | payer BC ==
[2024-12-14] MEDS: Ondansetron 4 MG/2 ML SDV IVPUSH ONE (20:17)
[2024-12-14] MEDS ORDERED: Ondansetron 4 MG/2 ML SDV IV PRN (20:44)
[2024-12-14] MEDS ORDERED: Ketorolac 15 MG/ML SDV IM PRN (20:44)
[2024-12-14 21:01] LABS: BASOPHILS PERCENT AUTO 0.3 % (0.1-1.3); EOSINOPHILS PERCENT AUTO 0.1 % (0.0-5.4); IMMATURE GRAN PERCENT AUTO 0.3 % (0.0-0.7); LYMPHOCYTES ABSOLUTE AUTO 0.70 K/uL (0.8-3.3); LYMPHOCYTES PERCENT AUTO 9.9 % (11.4-47.7); MONOCYTES ABSOLUTE AUTO 0.39 K/uL (0.20-0.90); MONOCYTES PERCENT AUTO 5.5 % (3.3-12.6); NEUTROPHILS ABSOLUTE AUTO 5.91 K/uL (1.0-7.6); NEUTROPHILS PERCENT AUTO 83.9 % (40.0-78.1); PLATELET COUNT,PLT 240 K/uL (130-375); RED BLOOD CELL COUNT 4.03 M/uL (3.77-5.24); WHITE BLOOD CELL COUNT,WBC 7.1 K/uL (3.2-11.0)
[2024-12-14 21:02] LABS: BASOPHILS ABSOLUTE AUTO 0.02 K/uL (0.00-0.10); EOSINOPHILS ABSOLUTE AUTO 0.01 K/uL (0.00-0.40); IMMATURE GRAN ABSOLUTE AUTO 0.02 K/uL (0.00-0.23)
[2024-12-14 21:17] LABS: BLOOD UREA NITROGEN,BUN 12 mg/dL (7-18); CARBON DIOXIDE,CO2 26 mmol/L (21-32); CHLORIDE,CL 103 mmol/L (100-108); CREATININE 0.7 mg/dL (0.6-1.0); ESTIMATED GFR 109 mL/min (>60); GLUCOSE RANDOM 101 mg/dL (74-106); POTASSIUM,K 4.2 mmol/L (3.6-5.2); SODIUM,NA 137 mmol/L (140-148)
[2024-12-14] MEDS: Ketorolac 15 MG/ML SDV IVPUSH PRN (21:57)
[2024-12-14] MEDS: Phenol/Sodium Phenolate Spray 180 ML Bottle MUCMEM PRN (21:58)
[2024-12-15 05:43] LABS: BASOPHILS ABSOLUTE AUTO 0.05 K/uL (0.00-0.10); BASOPHILS PERCENT AUTO 0.5 % (0.1-1.3); EOSINOPHILS ABSOLUTE AUTO 0.08 K/uL (0.00-0.40); EOSINOPHILS PERCENT AUTO 0.9 % (0.0-5.4); IMMATURE GRAN ABSOLUTE AUTO 0.03 K/uL (0.00-0.23); IMMATURE GRAN PERCENT AUTO 0.3 % (0.0-0.7); LYMPHOCYTES ABSOLUTE AUTO 1.10 K/uL (0.8-3.3); LYMPHOCYTES PERCENT AUTO 12.0 % (11.4-47.7); MONOCYTES ABSOLUTE AUTO 0.80 K/uL (0.20-0.90); MONOCYTES PERCENT AUTO 8.8 % (3.3-12.6); NEUTROPHILS ABSOLUTE AUTO 7.07 K/uL (1.0-7.6); NEUTROPHILS PERCENT AUTO 77.5 % (40.0-78.1); PLATELET COUNT,PLT 223 K/uL (130-375); RED BLOOD CELL COUNT 4.03 M/uL (3.77-5.24); WHITE BLOOD CELL COUNT,WBC 9.1 K/uL (3.2-11.0)
[2024-12-15 06:02] LABS: BLOOD UREA NITROGEN,BUN 13.0 mg/dL (7-18); CARBON DIOXIDE,CO2 23.0 mmol/L (21-32); CHLORIDE,CL 106.0 mmol/L (100-108); CREATININE 0.7 mg/dL (0.6-1.0); EST CRCL DRUG DOSING (CG) 80.27 mL/min; ESTIMATED GFR 109.0 mL/min (>60); GLUCOSE RANDOM 90.0 mg/dL (74-106); POTASSIUM,K 4.0 mmol/L (3.6-5.2); SODIUM,NA 139.0 mmol/L (140-148)
[2024-12-15] MEDS ORDERED: Amphetamine/Dextroamphetamine Salts 10 MG Cap.ER PO SCH (09:00)
[2024-12-15] MEDS: Amphetamine/Dextroamphetamine Salts 10 MG Cap.ER PO SCH (12:12)
[2024-12-15] MEDS: Betamethasone Dipropionate/Clotrimazole 0.05-1% Crm 15 GM Tube TOP SCH (20:26)
[2024-12-15] MEDS: Diatrizoate Meglumine/Diatrizoate Sodium 37% 120 ML Bottle PO SCH (23:58)
[2024-12-16] MEDS: Amphetamine/Dextroamphetamine Salts 10 MG Cap.ER PO SCH (08:58)
== END 2024-12-16 12:50 | disposition home or self-care (01) | DRG 247 ==
LOC: JP.MS 16:21 → OBSVTOIN 12-15 16:21
PROVIDERS: ADMIT Surgery; ATTEND Surgery
PROC: 0D9670Z Drainage of Stomach with Drainage Device, Via Natural or Artificial Opening (ICD-10-PCS; principal; 2024-12-15)
DX: K56.609 Unspecified intestinal obstruction, unspecified as to partial versus complete obstruction (principal); H54.7 Unspecified visual loss; J45.909 Unspecified asthma, uncomplicated; K59.00 Constipation, unspecified; R51.9 Headache, unspecified; F41.9 Anxiety disorder, unspecified; E53.8 Deficiency of other specified B group vitamins; E61.1 Iron deficiency; F32.A Depression, unspecified; D64.9 Anemia, unspecified; Z98.890 Other specified postprocedural states; Z98.891 History of uterine scar from previous surgery; Z88.1 Allergy status to other antibiotic agents; Z88.8 Allergy status to other drugs, medicaments and biological substances; Z79.899 Other long term (current) drug therapy; Z79.84 Long term (current) use of oral hypoglycemic drugs
CPT/HCPCS: 36415; 71045; 74018; 74018-26; 80048; 85025; 96374; 96375; 96376; A9270-GY; G0378; J1885; J2405; J2470; J7030; Q9963